=== PATIENT | female | born 1995 | race Caucasian/White ===

== ENCOUNTER 2018-01-07 19:50 | Inpatient (IN) | END 2018-01-11 13:15 | disposition home or self-care (01) | DRG 786 ==

== ENCOUNTER 2018-07-17 07:48 | Emergency (ER) | payer OTHER ==
[~2018-07-17] VITALS: Ht 165.1 cm; Wt 94.5 kg
[~2018-07-17 07:48] MED LIST: PREN1TAB67 PO
[2018-07-17 07:50] VITALS: BP 122/79; PULSE 86; RESP 18; Ht 165.1 cm; Wt 94.5 kg
[2018-07-17] MEDS ORDERED: IBUP-1542 PO (08:03)
[2018-07-17] MEDS ORDERED: AMOX500C2 PO (08:03)
--- NOTE | 2018-07-17 08:21 | ERD ---
ER Documentation Chief Complaint Chief Complaint rt side face swelling x 1 day HPI Patient is a 23-year-old female, no past medical history, presents the ER for concerns of mild swelling to the right side of her face. Patient states she feels as if she has an enlarged lymph node. She states she had symptoms for the last 2 days. Patient states that her wisdom tooth is coming out she is not sure if it is related to this. Patient also reports some fullness in her right ear. Patient has no fevers or chills. Patient has no redness or warmth to her skin. Patient has no rashes. No recent travel. No sick contacts. ROS All systems reviewed and are negative except as per history of present illness. Medications Home Meds Active Scripts Amoxicillin* (Amoxicillin*) 500 Mg Cap, 500 MG PO BID for 7 Days, CAP Prov:SURAJ KRUGER PA-C 07/17/18 Ibuprofen* (Motrin*) 600 Mg Tab, 600 MG PO Q6, #30 TAB Prov:SURAJ KRUGER PA-C 07/17/18 Reported Medications Vits W-Ca,Fe,Fa(<1MG) ( Formula) 1 Each Tablet, 1 EACH PO DAILY, #1 07/03/12 Allergies Allergies: Coded Allergies: No Known Allergy (Unverified , 07/24/15) PMhx/Soc Medical and Surgical Hx: pt denies Medical Hx History of Surgery: Yes (c/s) Anesthesia Reaction: No Hx Miscellaneous Medical Probl: No Hx Alcohol Use: No Hx Substance Use: No Hx Tobacco Use: No Smoking Status: Never smoker FmHx Family History: No diabetes Physical Exam Vitals Vital Signs Date Temp Pulse Resp B/P (MAP) Pulse Ox O2 O2 Flow FiO2 Time Delivery Rate 07/17/18 98.3 86 18 122/79 99 07:50 (93) Physical Exam GENERAL: Well-developed, well-nourished female. Appears in no acute distress. HEAD: Normocephalic, atraumatic. No deformities or ecchymosis. EYE: Pupils equal, round, and reactive to light. EOMs intact. No conjunctival erythema. No eye discharge. ENT: External ear without any masses or tenderness. Auditory canals clear bilaterally. TM visualized bilaterally, non-erythematous, non-bulging. Nasal mucosa pink with no discharge. Oropharynx is pink without any tonsillar erythema or exudates. No uvula deviation. No kissing tonsils. 1 cm round palpable lymph node noted to the right parotid region. Lymph node is tender. No trismus. No drooling. Patient is able to open close jaw without any difficulty. [place] tooth eruptions noted bilaterally. NECK: Supple. No meningismus. Normal ROM of the neck. LUNG: Clear to auscultation bilaterally. No rhonchi, wheezing, rales or coarse breath sounds. HEART: Regular rate and rhythm. No murmurs, rubs or gallops. EXTREMITES: Equal pulses bilaterally. No peripheral clubbing, cyanosis or edema. No unilateral leg swelling. NEUROLOGIC: Alert and oriented to person, place and time. Moving all four extremities. 5/5 strength in all extremities. Normal speech. Steady gait. SKIN: Normal color. Warm and dry. No rashes or lesions. Results 24 hrs Current Medications Medications Dose Sig/Leonardo Start Time Status Last (Trade) Ordered Route PRN Stop Time Admin Dose Reason Admin Ibuprofen 600 mg ONCE ONCE 07/17/18 07/17/18 (Motrin) PO 08:30 07/17/18 08:13 08:31 Procedures/MDM MEDICAL DECISION MAKING: This is a 23-year-old female presents ER for concerns of a enlarged lymph node on her right face since 2 days. Vital signs were reviewed. Patient was afebrile. Patient was not hypoxic. The patient did not have trismus, muffled voice, uvula deviation, unilateral tonsillar swelling, or drooling. No signs of neck swelling or hyperextension of the neck noted. On exam, wisdom tooth eruptions were no rosalio. Patient did have a 1 cm palpable tender lymph node. No skin erythema or warmth is noted. Patient will be discharged home with prescription for amoxicillin. At this time, patient's presentation is comes consistent with lymphadenopathy likely due to was on tooth eruption. Low suspicion for epiglottitis, strep pharyngitis, peritonsillar abscess, retropharyngeal abscess, [place] angina, tooth fracture, bleeding dental socket, periodontal abscess, ulcerative gingivitis, dental caries, dental trauma, meningitis. Unable to rule out malignancy at this time. She was advised in for the benefits that she should follow-up with a dentist/ENT specialist. PRESCRIPTIONS: Ibuprofen, amoxicillin DISCHARGE: At this time, patient is stable for discharge and outpatient management. I have instructed the patient to see a dentist today or tomorrow. I have instructed the patient to promptly return to the ER at any time for any new or worsening symptoms including increased pain, fever, swelling, neck swelling, neck st iffness, drooling or difficulty breathing. The patient and/or family expressed understanding of and agreement with this plan. All questions were answered. Home care instructions were provided. Disclaimer: Inadvertent spelling and grammatical errors are likely due to EHR/dictation software use and do not reflect on the overall quality of patient care. Also, please note that the electronic time recorded on this note does not necessarily reflect the actual time of the patient encounter. Departure Diagnosis: Primary Impression: Pain, dental Additional Impressions: Swelling Lymphadenopathy Condition: Fair Referrals: PENDING SALE TO [facility] YOU HAVE RECEIVED A MEDICAL SCREENING EXAM AND THE RESULTS INDICATE THAT YOU DO NOT HAVE A CONDITION THAT REQUIRES URGENT TREATMENT IN THE EMERGENCY DEPARTMENT. FURTHER EVALUATION AND TREATMENT OF YOUR CONDITION CAN WAIT UNTIL YOU ARE SEEN IN YOUR DOCTORS OFFICE WITHIN THE NEXT 1-2 DAYS. IT IS YOUR RESPONSIBILITY TO MAKE AN APPOINTMENT FOR FOLOW-UP CARE. IF YOU HAVE A PRIMARY DOCTOR --you should call your primary doctor and schedule an appointment IF YOU DO NOT HAVE A PRIMARY DOCTOR YOU CAN CALL OUR PHYSICIAN REFERRAL HOTLINE AT IF YOU CAN NOT AFFORD TO SEE A PHYSICIAN YOU CAN CHOSE FROM THE FOLLOWING [facility] [address] [facility]. [facility] [address] [facility] [facility] [address] [facility] [facility] [address] [facility] [facility] [address] [facility] [facility]. [address] [facility]. [place] YOU HAVE RECEIVED A MEDICAL SCREENING EXAM AND THE RESULTS INDICATE THAT YOU DO NOT HAVE A CONDITION THAT REQUIRES URGENT TREATMENT IN THE EMERGENCY DEPARTMENT. FURTHER EVALUATION AND TREATMENT OF YOUR CONDITION CAN WAIT UNTIL YOU ARE SEEN IN YOUR DOCTORS OFFICE WITHIN THE NEXT 1-2 DAYS. IT IS YOUR RESPONSIBILITY TO MAKE AN APPOINTMENT FOR FOLOW-UP CARE. IF YOU HAVE A PRIMARY DOCTOR --you should call your primary doctor and schedule and appointment IF YOU DO NOT HAVE A PRIMARY DOCTOR YOU CAN CALL OUR PHYSICIAN REFERRAL HOTLINE AT . IF YOU CAN NOT AFFORD TO SEE A PHYSICIAN YOU CAN CHOSE FROM THE FOLLOWING [facility] INSTITUTIONS: [facility] [address] [place] [address] [facility] [address] [place] [address] [facility] [address] [place] [address] [facility] ([facility] walk in clinic) Additional Instructions: Follow up with your dentist. Call your primary care doctor TOMORROW for an appointment during the next 1-2 days.See the doctor sooner or return here if your condition worsens before your appointment time. SURAJ KRUGER PA-C Jul 17, 2018 08:21
[2018-07-17] MEDS ORDERED: IBUPROFEN 600 MG TAB PO ONE (08:30)
== END 2018-07-17 08:17 | disposition home or self-care (01) ==
LOC: FTE 07:48
DX: K08.89 Other specified disorders of teeth and supporting structures (principal); R59.0 Localized enlarged lymph nodes
CPT/HCPCS: 99283

== ENCOUNTER 2018-09-12 22:15 | Emergency (ER) | payer OTHER ==
[~2018-09-12] VITALS: Ht 167.6 cm; Wt 93.5 kg
[~2018-09-12 22:15] MED LIST changes: +AMOX500C2 PO; +IBUP-1542 PO; +ONDA8TAB14 PO
[2018-09-12 22:16] VITALS: Ht 167.6 cm; Wt 93.5 kg
[2018-09-12] MEDS ORDERED: KETOROLAC 30 MG INJ IV STA (22:59)
[2018-09-12] MEDS ORDERED: SOD CHLORIDE 0.9% 500 ML IV STA (22:59)
[2018-09-12] MEDS ORDERED: ONDANSETRON 4 MG INJ IV STA (22:59)
[2018-09-12] MEDS ORDERED: ACETAMINOPHEN 325 MG TAB PO ONE (23:00)
--- NOTE | 2018-09-13 00:02 | ERD ---
ER Documentation Chief Complaint Chief Complaint N/V XTODAY; ATE/DRANK A COCKTAIL IN AM THEN FELT SICK HPI 23-year-old female presents with vomiting and fever starting today. She has mild intermittent lower abdominal pain. She denies urinary complaints, diarrhea, cough, shortness of breath or chest pain. ROS All systems reviewed and are negative except as per history of present illness. Medications Home Meds Active Scripts Ibuprofen* (Motrin*) 600 Mg Tab, 600 MG PO Q6, #15 TAB Prov:TAWANA CHANDLER MD 09/12/18 Ondansetron (Ondansetron Odt) 8 Mg Tab.rapdis, 8 MG PO Q6H PRN for NAUSEA AND/OR VOMITING, #8 TAB Prov:TAWANA CHANDLER MD 09/12/18 Amoxicillin* (Amoxicillin*) 500 Mg Cap, 500 MG PO BID for 7 Days, CAP Prov:SURAJ KRUGER PA-C 07/17/18 Ibuprofen* (Motrin*) 600 Mg Tab, 600 MG PO Q6, #30 TAB Prov:SURAJ KRUGER PA-C 07/17/18 Reported Medications Vits W-Ca,Fe,Fa(<1MG) ( Formula) 1 Each Tablet, 1 EACH PO DAILY, #1 07/03/12 Allergies Allergies: Coded Allergies: No Known Allergy (Unverified , 07/24/15) PMhx/Soc History of Surgery: Yes (2 ) Anesthesia Reaction: No Hx Neurological Disorder: No Hx Respiratory Disorders: No Hx Cardiac Disorders: No Hx Miscellaneous Medical Probl: No Hx Alcohol Use: No Hx Substance Use: No Hx Tobacco Use: No Smoking Status: Never smoker FmHx Family History: No diabetes, No coronary disease, No other Physical Exam Vitals Vital Signs Date Temp Pulse Resp B/P (MAP) Pulse Ox O2 O2 Flow FiO2 Time Delivery Rate 09/12/18 101.4 23:32 09/12/18 101.4 120 20 132/67 99 22:16 (88) Physical Exam Const: No acute distress Head: Atraumatic Eyes: Normal Conjunctiva ENT: Normal External Ears, Nose and Mouth. TMs and oropharynx normal. Neck: Full range of motion. No meningismus. Resp: Clear to auscultation bilaterally Cardio: Regular rate and rhythm, no murmurs Abd: Soft, mild diffuse lower abdominal tenderness. No tenderness McBurney's point no Ivey sign. No rebound. Non distended. Normal bowel sounds Skin: No petechiae or rashes Back: No midline or flank tenderness Ext: No cyanosis, or edema Neur: Awake and alert Psych: Normal Mood and Affect Result Diagram: 09/12/18 2321 09/12/18 2321 Results 24 hrs Laboratory Tests Test 09/12/18 23:11 09/12/18 23:21 09/12/18 23:22 POC Beta HCG, Qualitative NEGATIVE White Blood Count 14.0 10^3/ul Red Blood Count 5.01 10^6/ul Hemoglobin 14.2 g/dl Hematocrit 43.1 % Mean Corpuscular Volume 86.0 fl Mean Corpuscular Hemoglobin 28.3 pg Mean Corpuscular 32.9 g/dl Hemoglobin Concent Red Cell Distribution Width 12.8 % Platelet Count 261 10^3/UL Mean Platelet Volume 12.0 fl Immature Granulocytes % 0.300 % Neutrophils % 89.5 % Lymphocytes % 6.7 % Monocytes % 3.3 % Eosinophils % 0.1 % Basophils % 0.1 % Nucleated Red Blood Cells % 0.0 /100WBC Immature Granulocytes # 0.040 10^3/ul Neutrophils # 12.5 10^3/ul Lymphocytes # 0.9 10^3/ul Monocytes # 0.5 10^3/ul Eosinophils # 0.0 10^3/ul Basophils # 0.0 10^3/ul Nucleated Red Blood Cells # 0.0 10^3/ul Sodium Level 138 mmol/L Potassium Level 3.5 mmol/L Chloride Level 102 mmol/L Carbon Dioxide Level 25 mmol/L Anion Gap 11 Blood Urea Nitrogen 12 mg/dl Creatinine 0.68 mg/dl Est Glomerular Filtrat > 60 mL/min Rate mL/min Glucose Level 116 mg/dl Calcium Level 9.5 mg/dl Total Bilirubin 0.7 mg/dl Direct Bilirubin 0.00 mg/dl Indirect Bilirubin 0.7 mg/dl Aspartate Amino Transf (AST/SGOT) 25 IU/L Alanine 25 IU/L Aminotransferase (ALT/SGPT) Alkaline Phosphatase 108 IU/L Total Protein 8.4 g/dl Albumin 4.8 g/dl Globulin 3.60 g/dl Albumin/Globulin Ratio 1.33 Lipase 39 U/L Urine Color YELLOW Urine Clarity SLIGHTLY CLOUDY Urine pH 5.0 Urine Specific [place] 1.028 Urine Ketones 1+ mg/dL Urine Nitrite NEGATIVE mg/dL Urine Bilirubin NEGATIVE mg/dL Urine Urobilinogen NEGATIVE mg/dL Urine Leukocyte Esterase NEGATIVE Anup/ul Urine Microscopic RBC 36 /HPF Urine Microscopic WBC 3 /HPF Urine Squamous Epithelial Cells FEW /HPF Urine Bacteria FEW /HPF Urine Mucus FEW /HPF Urine Hemoglobin 3+ mg/dL Urine Glucose NEGATIVE mg/dL Urine Total Protein 2+ mg/dl Current Medications Medications Dose Sig/Leonardo Start Time Status Last (Trade) Ordered Route PRN Stop Time Admin Dose Reason Admin 650 mg ONCE ONCE 09/12/18 DC 09/12/18 Acetaminophen PO 23:00 09/12/18 23:32 (Tylenol 23:01 Tab) Sodium 500 ml @ Q1H STAT 09/12/18 DC 09/12/18 Chloride 500 mls/hr IV 22:59 09/12/18 23:32 23:58 Ondansetron 4 mg ONCE STAT 09/12/18 DC 09/12/18 HCl (Zofran IV 22:59 09/12/18 23:32 Inj) 23:01 Ketorolac 30 mg ONCE STAT 09/12/18 DC 09/12/18 Tromethamine IV 22:59 09/12/18 23:31 (Toradol) 23:01 Procedures/MDM Patient presents with fever and vomiting starting this morning. She was given 1 L normal saline IV, Toradol, Tylenol, Zofran. Patient had a mild leukocytosis of 14. CMP is normal. Urine is negative and hCG negative. Serial exam shows that patient's symptoms have completely resolved and she felt much better. She had a benign abdomen. Vital signs improved. Patient presents with fever and vomiting starting today. Symptoms resolved after observation treatment she is well-appearing and talkative. Patient may have early viral gastroenteritis. She will be treated with Zofran, fever control. We will recommend rest and fluids, primary care follow-up and return precautions. The patient was stable with no new complaints during the ER course. Clinically, there is no current evidence to suggest meningitis, sepsis, acute abdomen, pneumonia, stroke, acute coronary syndrome, pulmonary embolism, aortic dissection or any other emergent condition appearing to require further evaluation or hospitalization. Patient counseled regarding my diagnostic impression and care plan. Prior to discharge all questions answered. Pt agrees with treatment plan and understands strict return precautions. Pt is instructed to follow up with primary care provider within 24-48 hours. Precautionary instructions provided including instructions to return to the ER if not improving or for any worsening or changing symptoms or concerns. Disclaimer: Inadvertent spelling and grammatical errors are likely due to EHR/dictation software use and do not reflect on the overall quality of patient care. Also, please note that the electronic time recorded on this note does not necessarily reflect the actual time of the patient encounter. Departure Diagnosis: Primary Impression: Fever Fever type: unspecified Qualified Codes: R50.9 - Fever, unspecified Additional Impression: Nausea and vomiting Vomiting type: unspecified Vomiting Intractability: unspecified Qualified Codes: R11.2 - Nausea with vomiting, unspecified Condition: Stable Patient Instructions: Nausea and Vomiting-Adult, Fever Control (Adult) Additional Instructions: No acute abnormalities on examinations today. May be viral gastroenteritis which usually last 1 to 3 days. Drink plenty of fluids at home. Recheck for new worsening symptoms with primary doctor. TAWANA CHANDLER MD Sep 13, 2018 00:02
[2018-09-13 00:35] VITALS: BP 102/78; PULSE 92; RESP 17
== END 2018-09-13 00:35 | disposition home or self-care (01) ==
LOC: FTE 22:15
DX: R50.9 Fever, unspecified (principal); R11.2 Nausea with vomiting, unspecified
CPT/HCPCS: 36415; 80053; 81001; 81025; 83690; 85025; 87086; 96374; 96375; J1885; J2405; J7040; Z7502; Z7610